=== PATIENT | male | born 1955 | race African-American/Black ===

== ENCOUNTER → 2017-10-06 | Outpatient (CLI) | payer OTHER ==
[~2017-10-06] MED LIST: DOCO1CAP6 PO; FERR220E7 PO; GEMF600T3 PO; LISI-622 PO; SITA50 PO
== END | disposition home or self-care (01) ==
LOC: RADPV 10:22
PROVIDERS: ATTEND Hospitalist
DX: N18.3 Chronic kidney disease, stage 3 (moderate) (principal); R79.89 Other specified abnormal findings of blood chemistry
CPT/HCPCS: 76770

== ENCOUNTER 2017-10-10 23:51 | Inpatient (IN) | payer OTHER ==
[~2017-10-10] VITALS: Ht 170.2 cm; Wt 71.6 kg
[2017-10-10] MEDS ORDERED: GEMF600T3 PO (23:57)
[2017-10-10] MEDS ORDERED: SITA50 PO (23:57)
[2017-10-10] MEDS ORDERED: FERR220E7 PO (23:57)
[2017-10-10] MEDS ORDERED: DOCO1CAP6 PO (23:57)
[2017-10-10] MEDS ORDERED: LISI-622 PO (23:57)
[2017-10-11 00:07] LABS: GLUCOSE,POINT OF CARE 149 MG/DL (70-110)
[2017-10-11 00:22] LABS: BASOPHILS % (AUTO) 0.6 % (0.0-2.0); EOSINOPHILS % (AUTO) 11.9 % (1.0-6.0); HEMATOCRIT 34.7 % (41-53); HEMOGLOBIN 12.2 g/dL (13.5-17.5); LYMPHOCYTES # (AUTO) 1.2 K/uL (1.0-4.8); LYMPHOCYTES % (AUTO) 22.9 % (22.0-44.0); MEAN CORPUSCULAR HEMOGLOBIN 32.8 pg (26.0-34.0); MEAN CORPUSCULAR HGB CONC 35.2 G/dL (31.0-37.0); MEAN CORPUSCULAR VOLUME 93 fL (80-100); MONOCYTES # (AUTO) 0.6 K/uL (0.1-1.0); MONOCYTES % (AUTO) 12.2 % (2.0-9.0); NEUTROPHILS # (AUTO) 2.6 K/uL (1.8-7.7); NEUTROPHILS % (AUTO) 52.4 % (40.0-70.0); PLATELET COUNT (AUTO) 197 K/uL (150-450); RED BLOOD CELL COUNT(AUTO) 3.73 MIL/uL (4.50-5.90); RED CELL DISTRIBUTION WIDTH 13.2 % (11.5-14.5); WHITE BLOOD COUNT (AUTO) 5.1 K/uL (4.5-11.0)
[2017-10-11] MEDS ORDERED: NITROGLYCERIN 2% (1 GM=INCH) PACKET TP ONE ×3 (00:30→06:00)
[2017-10-11] MEDS ORDERED: ASPIRIN 81 MG CHEWABLE TABLET PO ONE (00:30)
[2017-10-11] MEDS ORDERED: ASPIRIN 325 MG EC TABLET PO ONE (00:30)
[2017-10-11 00:32] LABS: CALCIUM, TOTAL 9.5 mg/dL (8.8-10.5); CREATININE 1.65 mg/dL (0.60-1.30)
[2017-10-11 00:37] LABS: ALBUMIN 4.1 g/dL (3.4-5.0); BILIRUBIN,TOTAL 0.3 mg/dL (0.1-1.0); TOTAL PROTEIN, SERUM 7.9 g/dL (6.4-8.2)
[2017-10-11] MEDS ORDERED: ONDANSETRON HCL 4 MG/2 ML VIAL IVP ONE (03:15)
[2017-10-11] MEDS ORDERED: MORPHINE SULFATE 2 MG/ML SYRINGE IVP ONE (03:15)
[2017-10-11] MEDS ORDERED: HYDROCODONE/ACETAMINOPHEN 5-325 MG TABLET PO PRN (04:45)
[2017-10-11] MEDS ORDERED: ONDANSETRON HCL 4 MG/2 ML VIAL IVP PRN (04:45)
[2017-10-11] MEDS ORDERED: ACETAMINOPHEN 325 MG TABLET PO PRN ×2 (04:45→11:30)
[2017-10-11] MEDS ORDERED: MORPHINE SULFATE 4 MG/ML SYRINGE IVP PRN (04:45)
[2017-10-11] MEDS ORDERED: 0.9% SODIUM CHLORIDE 10 ML SYRINGE IVP PRN (04:45)
[2017-10-11 09:00] VITALS: BP 137/73
[2017-10-11] MEDS ORDERED: LISINOPRIL 10 MG TABLET PO ONE (09:00)
[2017-10-11] MEDS ORDERED: GEMFIBROZIL 600 MG TABLET PO ONE (09:00)
[2017-10-11] MEDS ORDERED: SitaGLIPtin PHOSPHATE 25 MG TABLET PO ONE (09:00)
[2017-10-11] MEDS ORDERED: MAGNESIUM HYDROXIDE SUSPENSION 30 ML UDCUP PO PRN (11:30)
[2017-10-11] MEDS ORDERED: INSULIN ASPART 100 UNITS/ML SQ PRN (11:45)
[2017-10-11] MEDS ORDERED: DEXTROSE 50%-WATER 25 GM/50 ML SYRINGE IVP PRN (11:45)
[2017-10-11 12:06] VITALS: BP 138/76
[2017-10-11] MEDS ORDERED: PNEUMOCOCCAL VACCINE POLYVALENT 0.5 ML VIAL [PPSV23] IM ONE (12:45)
[2017-10-11] MEDS ORDERED: SESTAMIBI TC99M/UD ISOTOPE 1 EA INJ INJ ONE (12:50)
[2017-10-11 15:10] VITALS: BP 133/83
[2017-10-11 19:51] VITALS: BP 121/68
[2017-10-11] MEDS: DOCUSATE SODIUM 100 MG CAPSULE PO SCH (20:36)
[2017-10-11 23:43] VITALS: BP 100/68
[2017-10-12 04:58] VITALS: BP 113/63
[2017-10-12 05:58] LABS: BASOPHILS % (AUTO) 0.7 % (0.0-2.0); EOSINOPHILS % (AUTO) 12.4 % (1.0-6.0); HEMATOCRIT 31.8 % (41-53); HEMOGLOBIN 11.4 g/dL (13.5-17.5); LYMPHOCYTES # (AUTO) 1.3 K/uL (1.0-4.8); LYMPHOCYTES % (AUTO) 32.2 % (22.0-44.0); MEAN CORPUSCULAR HEMOGLOBIN 33.6 pg (26.0-34.0); MEAN CORPUSCULAR HGB CONC 35.9 G/dL (31.0-37.0); MEAN CORPUSCULAR VOLUME 94 fL (80-100); MONOCYTES # (AUTO) 0.6 K/uL (0.1-1.0); MONOCYTES % (AUTO) 13.8 % (2.0-9.0); NEUTROPHILS # (AUTO) 1.7 K/uL (1.8-7.7); NEUTROPHILS % (AUTO) 40.9 % (40.0-70.0); PLATELET COUNT (AUTO) 173 K/uL (150-450); RED CELL DISTRIBUTION WIDTH 13.1 % (11.5-14.5); WHITE BLOOD COUNT (AUTO) 4.1 K/uL (4.5-11.0)
[2017-10-12 07:16] VITALS: BP 132/76
[2017-10-12 07:35] LABS: ALBUMIN 3.8 g/dL (3.4-5.0); BILIRUBIN,TOTAL 0.3 mg/dL (0.1-1.0); CALCIUM, TOTAL 8.9 mg/dL (8.8-10.5); CREATININE 1.55 mg/dL (0.60-1.30); MAGNESIUM 2.1 mg/dL (1.80-2.40); POTASSIUM 4.4 mmol/L (3.5-5.1); TOTAL PROTEIN, SERUM 6.8 g/dL (6.4-8.2)
[2017-10-12 07:50] VITALS: BP 120/74
[2017-10-12] MEDS ORDERED: REGADENOSON 0.4 MG/5 ML PF SYRINGE IVP ONE ×2 (07:58→15:14)
[2017-10-12 08:05] VITALS: BP 140/61
[2017-10-12] MEDS ORDERED: SESTAMIBI TC99M/UD ISOTOPE 1 EA INJ INJ ONE (08:10)
[2017-10-12] MEDS: DOCUSATE SODIUM 100 MG CAPSULE PO SCH (08:56)
[2017-10-12] MEDS ORDERED: PANTOPRAZOLE SODIUM 40 MG DR TABLET PO SCH (09:00)
[2017-10-12] MEDS ORDERED: ASPIRIN 81 MG CHEWABLE TABLET PO SCH (09:00)
[2017-10-12] MEDS ORDERED: ASPIRIN 81 MG EC TABLET PO ONE (09:00)
[2017-10-12 11:14] VITALS: BP 130/66
[2017-10-17 23:58] LABS: GLUCOSE,POINT OF CARE 79 MG/DL (70-110)
[2017-10-17 23:58] LABS: GLUCOSE,POINT OF CARE 93 MG/DL (70-110)
[2017-10-17 23:58] LABS: GLUCOSE,POINT OF CARE 115 MG/DL (70-110)
[2017-10-17 23:59] LABS: GLUCOSE COMMENT 1 Received Meds; GLUCOSE,POINT OF CARE 158 MG/DL (70-110)
[2017-10-17 23:59] LABS: GLUCOSE,POINT OF CARE 109 MG/DL (70-110)
== END 2017-10-12 15:15 | disposition home or self-care (01) | DRG 198 ==
LOC: EMS 23:51 → 5S 10-11 05:09
PROVIDERS: ADMIT Internal Medicine; ATTEND Internal Medicine
DX: I20.9 Angina pectoris, unspecified (principal); E11.22 Type 2 diabetes mellitus with diabetic chronic kidney disease; N18.3 Chronic kidney disease, stage 3 (moderate); Z77.29 Contact with and (suspected) exposure to other hazardous substances; E78.5 Hyperlipidemia, unspecified; I12.9 Hypertensive chronic kidney disease with stage 1 through stage 4 chronic kidney disease, or unspecified chronic kidney disease; E78.00 Pure hypercholesterolemia, unspecified; D64.9 Anemia, unspecified; Z90.49 Acquired absence of other specified parts of digestive tract; Z79.84 Long term (current) use of oral hypoglycemic drugs; Z79.4 Long term (current) use of insulin; Z88.0 Allergy status to penicillin; Z28.21 Immunization not carried out because of patient refusal
CPT/HCPCS: 78452; 82962; 83735; 93005; 93017; 93306; 99285; A9500; J2785

== ENCOUNTER 2019-07-22 14:10 | Emergency (ER) | payer OTHER ==
[~2019-07-22] VITALS: Ht 170.2 cm; Wt 77.3 kg
[~2019-07-22 14:10] MED LIST changes: -GEMF600T3 PO; +GEMF600T89 PO
[2019-07-22 14:26] LABS: GLUCOSE,POINT OF CARE 151 MG/DL (70-110)
[2019-07-22 14:32] LABS: BASOPHILS % (AUTO) 0.7 % (0.0-2.0); EOSINOPHILS % (AUTO) 4.3 % (1.0-6.0); HEMATOCRIT 39.8 % (41-53); HEMOGLOBIN 13.5 g/dL (13.5-17.5); LYMPHOCYTES # (AUTO) 1.1 K/uL (1.0-4.8); LYMPHOCYTES % (AUTO) 12.7 % (22.0-44.0); MEAN CORPUSCULAR HEMOGLOBIN 31.7 pg (26.0-34.0); MEAN CORPUSCULAR VOLUME 93 fL (80-100); MONOCYTES # (AUTO) 0.9 K/uL (0.1-1.0); MONOCYTES % (AUTO) 10.7 % (2.0-9.0); NEUTROPHILS # (AUTO) 6.2 K/uL (1.8-7.7); NEUTROPHILS % (AUTO) 71.6 % (40.0-70.0); PLATELET COUNT (AUTO) 156 K/uL (150-450); RED BLOOD CELL COUNT(AUTO) 4.26 MIL/uL (4.50-5.90); RED CELL DISTRIBUTION WIDTH 13.5 % (11.5-14.5)
[2019-07-22 14:46] LABS: CALCIUM, TOTAL 9.7 mg/dL (8.8-10.5); CREATININE 1.51 mg/dL (0.60-1.30); POTASSIUM 3.8 mmol/L (3.5-5.1)
[2019-07-22 14:50] LABS: PROTHROMBIN TIME 10.6 SEC (9.4-11.6)
[2019-07-22 15:11] LABS: ALBUMIN 4.2 g/dL (3.4-5.0); BILIRUBIN,TOTAL 4.9 mg/dL (0.1-1.0)
[2019-07-22] MEDS ORDERED: MORPHINE SULFATE 4 MG/ML SYRINGE IVP ONE ×2 (16:15→20:30)
[2019-07-22] MEDS ORDERED: SODIUM CHLORIDE 0.9% 1,000 ML IV ONE ×2 (16:15→18:00)
[2019-07-22 16:18] LABS: APPEARANCE,URINE CLEAR (CLEAR); GLUCOSE, URINE (UA) NEGATIVE (NEGATIVE); KETONES,URINE NEGATIVE (NEGATIVE); LEUKOCYTE ESTERASE ,URINE TRACE (NEGATIVE); NITRATE,URINE NEGATIVE (NEGATIVE); OCCULT BLOOD,URINE NEGATIVE (NEGATIVE); PH,URINE 5.5 (5.0-8.0); PROTEIN,URINE POS 1+ (NEGATIVE)
[2019-07-22 16:19] LABS: BILIRUBIN,URINE PRELIM. POSITIVE (NEGATIVE)
[2019-07-22 16:33] LABS: BACTERIA,URINE Rare /HPF (None Seen); RBC,URINE 0-2 /HPF (0-2); SQUAMOUS EPITHELIAL CELL,UR Few /LPF (None Seen)
[2019-07-22] MEDS ORDERED: CefTRIAXone 1 GM/DEXTROSE 50 ML IV ONE (18:00)
[2019-07-22] MEDS ORDERED: MetroNIDAZOLE 750 MG/NACL 150 ML IV ONE (18:00)
[2019-07-22 20:51] LABS: GLUCOSE,POINT OF CARE 124 MG/DL (70-110)
[2019-07-22 21:36] VITALS: BP 143/77
== END 2019-07-22 21:45 | disposition short-term general hospital (02) ==
LOC: EMS 14:10
DX: K80.51 Calculus of bile duct without cholangitis or cholecystitis with obstruction (principal); R17 Unspecified jaundice; E11.9 Type 2 diabetes mellitus without complications; E78.00 Pure hypercholesterolemia, unspecified; I10 Essential (primary) hypertension; Z90.89 Acquired absence of other organs; Z88.0 Allergy status to penicillin; Z79.899 Other long term (current) drug therapy
CPT/HCPCS: 36415; 71045; 76705; 80053; 81001; 82550; 82962; 83690; 83880; 84484; 85025; 85610; 85730; 87040; 93005; 96365; 96368; 96375; 96376; 99285; J0696; J2270; J3490; J7030